=== PATIENT | male | born 1950 | race African-American/Black ===

== ENCOUNTER 2018-11-17 11:50 | Emergency (ER) | payer BC, MEDICARE ==
[~2018-11-17] VITALS: Ht 188 cm; Wt 98.0 kg
[~2018-11-17 11:50] MED LIST: AMLO5TAB88 PO; PRAV40TA58 PO; TOBR5DRO2 OP; VALS160T2 PO
[2018-11-17] MEDS ORDERED: ACETAMINOPHEN 325MG TABLET PO ONE (13:30)
[2018-11-17 15:49] VITALS: BP 166/95
== END 2018-11-17 15:58 | disposition home or self-care (01) ==
LOC: ER 11:50
DX: R51 Headache (principal); V43.52XA Car driver injured in collision with other type car in traffic accident, initial encounter; Y93.89 Activity, other specified; Y92.410 Unspecified street and highway as the place of occurrence of the external cause; I11.9 Hypertensive heart disease without heart failure; I25.2 Old myocardial infarction; Z86.73 Personal history of transient ischemic attack (TIA), and cerebral infarction without residual deficits
CPT/HCPCS: 99284

== ENCOUNTER 2019-04-14 02:40 | Emergency (ER) | payer BC, MEDICARE ==
[~2019-04-14] VITALS: Ht 182.9 cm; Wt 100.0 kg
[2019-04-14 03:45] VITALS: BP 170/84
== END 2019-04-14 04:04 | disposition home or self-care (01) ==
LOC: ER 02:40
DX: R31.9 Hematuria, unspecified (principal); R33.9 Retention of urine, unspecified; I25.2 Old myocardial infarction; I10 Essential (primary) hypertension
CPT/HCPCS: 99283

== ENCOUNTER 2023-05-23 18:00 | Inpatient (IN) | payer BC ==
[~2023-05-23] VITALS: Ht 167.6 cm; Wt 89.4 kg
[~2023-05-23 18:00] MED LIST changes: -AMLO5TAB88 PO; +CLOP75TA33 MT; +FERR-63 PO; +HYDR-4009 PO; +LOSA1TAB37 MT; +NICO-681 TD; -TOBR5DRO2 OP; -VALS160T2 PO
[2023-05-23 19:20] VITALS: BP 112/71; PULSE 95; RESP 19; TEMP 98.1
[2023-05-23 20:00] VITALS: BP 112/71; PULSE 95; RESP 19; TEMP 98.1
[2023-05-23] MEDS ORDERED: ACETAMINOPHEN 325MG TABLET PO PRN (20:15)
[2023-05-23] MEDS ORDERED: MAGNESIUM/ALUMINUM HYDROXIDE/SIMETHICONE 30ML UDC PO PRN (20:15)
[2023-05-23] MEDS ORDERED: NALOXONE HCL 0.4MG/ML 1ML VIAL IV PRN (20:15)
[2023-05-23] MEDS ORDERED: DOCUSATE SODIUM 100MG CAPSULE PO PRN (20:15)
[2023-05-23] MEDS ORDERED: NITROGLYCERIN 0.4MG TABLET SL SL PRN (20:15)
[2023-05-23] MEDS ORDERED: ONDANSETRON HCL 4MG/2ML INJ IV PRN ×2 (20:15→21:15)
[2023-05-23] MEDS: AMLODIPINE 5MG TABLET PO SCH (21:36)
[2023-05-23] MEDS: ATORVASTATIN CALCIUM 40MG TABLET PO SCH (21:36)
[2023-05-23] MEDS: QUETIAPINE FUMARATE 25MG TABLET PO SCH (21:37)
[2023-05-23] MEDS: SODIUM CHLORIDE 0.9% 1,000 ML IV SCH (21:37)
[2023-05-23] MEDS: HYDROCODONE/ACETAMINOPHEN 10/325MG TABLET PO PRN (21:42)
[2023-05-23] MEDS: HYDRALAZINE HCL 10MG TABLET PO SCH (21:43)
[2023-05-23] MEDS: OXYBUTYNIN CHLORIDE 5MG TABLET PO SCH (21:44)
[2023-05-24 06:52] LABS: BASOPHILS % 1.2 % (0.0-2.0); DIFFERENTIAL COMMENT 0; HEMATOCRIT. 24.8 % (42.0-52.0); HEMOGLOBIN. 8.3 g/dL (14.0-18.0); LYMPHOCYTES % 17.7 % (20.0-50.0); MEAN CORPUSCULAR HEMOGLOBIN 26.4 pg (28.0-32.0); MEAN CORPUSCULAR HGB CONC 33.4 g/dL (31.0-37.0); MEAN PLATELET VOLUME 7.6 fl (7.4-10.4); MONOCYTES % 7.9 % (2.0-8.0); NEUTROPHILS % 69.2 % (40.0-76.0); PLATELET 413 x1000/uL (130-400); RED BLOOD CELL COUNT 3.13 mill/uL (4.7-6.1); RED CELL DISTRIBUTION WIDTH 21.4 % (11.6-14.6)
[2023-05-24 07:21] LABS: ALANINE AMINOTRANSFERASE 45 IU/L (10-49); ALBUMIN 3.3 g/dL (3.2-4.8); ASPARTATE AMINOTRANSFERASE 59 IU/L (<34); BILIRUBIN TOTAL 0.3 mg/dL (0.1-1.0); CALCIUM 8.2 mg/dL (8.7-10.4); CARBON DIOXIDE 25 mEq/L (21-32); CHLORIDE 101 mEq/L (98-107); GLUCOSE 83 mg/dL (70-105); POTASSIUM 3.5 mEq/L (3.5-5.1); PROTEIN TOTAL 6.6 g/dL (6.0-8.3); SODIUM 129 mEq/L (136-145); UREA NITROGEN BLOOD 11 mg/dL (9-23)
[2023-05-24 08:00] VITALS: BP 111/63; PULSE 96; RESP 19; TEMP 100.3
[2023-05-24] MEDS: SILVER SULFADIAZINE 1% CREAM 50GM TOP SCH (09:00)
[2023-05-24] MEDS: NICOTINE 14MG PATCH TD SCH (09:04)
[2023-05-24] MEDS: CLOPIDOGREL 75MG TABLET PO SCH (09:04)
[2023-05-24] MEDS: ZINC SULFATE 220 MG ( 50 ) CAPSULE PO SCH (09:04)
[2023-05-24] MEDS: SERTRALINE HCL 25MG TABLET PO SCH (09:04)
[2023-05-24] MEDS: MULTIVITAMINS,THER W-MINERALS TABLET PO SCH (09:04)
[2023-05-24] MEDS: ASCORBIC ACID 500 MG TABLET PO SCH (09:05)
[2023-05-24] MEDS: FERROUS SULFATE 325MG TABLET PO SCH (09:05)
[2023-05-24] MEDS: CLONIDINE 0.1MG TABLET PO PRN (09:14)
[2023-05-24] MEDS ORDERED: CLONIDINE 0.1MG TABLET PO PRN (13:15)
[2023-05-25 08:00] VITALS: BP 106/76; PULSE 63; RESP 17; TEMP 97.1
[2023-05-25] MEDS: ACETAMINOPHEN 325MG TABLET PO PRN (17:33)
[2023-05-25 20:00] VITALS: BP 127/77; PULSE 88; RESP 18; TEMP 98.7
[2023-05-26 08:00] VITALS: BP 124/77; PULSE 92; RESP 18; TEMP 99.1
[2023-05-26] MEDS: MICONAZOLE NITRATE 2% OINT 71GM TOP SCH (09:00)
[2023-05-26 20:00] VITALS: BP 134/63; PULSE 99; RESP 18; TEMP 97.5
[2023-05-27 08:00] VITALS: BP 114/56; PULSE 75; RESP 17; TEMP 97.2
[2023-05-27 19:46] VITALS: BP 102/63; PULSE 89; RESP 20; TEMP 97.3
[2023-05-28 08:00] VITALS: BP 134/60; PULSE 72; RESP 18; TEMP 97.1
[2023-05-28 20:00] VITALS: BP 110/62; PULSE 91; RESP 18; TEMP 98.1
[2023-05-29 08:00] VITALS: BP 118/68; PULSE 86; RESP 19; TEMP 97.1
[2023-05-29 20:00] VITALS: BP 125/68; PULSE 97; RESP 18; TEMP 98.2
[2023-05-30 08:00] VITALS: BP 120/60; PULSE 88; RESP 18; TEMP 97.4
[2023-05-30 20:38] VITALS: BP 127/78; PULSE 89; RESP 20; TEMP 98.7
[2023-05-31 07:22] LABS: HEMATOCRIT 26.2 % (42.0-52.0); MEAN CORPUSCULAR HGB CONC 34.3 g/dL (31.0-37.0); MEAN CORPUSCULAR VOLUME 78.5 fL (80.0-94.0); PLATELET 384 x1000/uL (130-400); RED BLOOD CELL COUNT 3.34 mill/uL (4.7-6.1); RED CELL DISTRIBUTION WIDTH 21.4 % (11.6-14.6); WHITE BLOOD COUNT 5.4 x1000/uL (4.5-11.0)
[2023-05-31 07:27] LABS: CALCIUM 8.3 mg/dL (8.7-10.4); CARBON DIOXIDE 26 mEq/L (21-32); CHLORIDE 104 mEq/L (98-107); CREATININE 1.2 mg/dL (0.6-1.3); GLUCOSE 100 mg/dL (70-105); POTASSIUM 3.5 mEq/L (3.5-5.1); SODIUM 137 mEq/L (136-145); UREA NITROGEN BLOOD 11 mg/dL (9-23)
[2023-05-31 08:00] VITALS: BP 97/57; PULSE 88; RESP 18; TEMP 97.6
[2023-05-31 19:48] VITALS: BP 121/59; PULSE 96; RESP 20; TEMP 97.6
[2023-06-01 08:00] VITALS: BP 140/74; PULSE 98; RESP 20; TEMP 96.4
[2023-06-01 20:00] VITALS: BP 101/55; PULSE 95; RESP 18; TEMP 97.5
[2023-06-02 08:00] VITALS: BP 137/58; PULSE 82; RESP 20; TEMP 98.1
[2023-06-02 11:04] VITALS: BP 137/58; PULSE 82; TEMP 98.2; O2SAT 94
[2023-06-02] MEDS ORDERED: AMLO5TAB88 PO (11:44)
[2023-06-02] MEDS ORDERED: MULT-230 PO (11:44)
[2023-06-02] MEDS ORDERED: NICO1PAT50 TP (11:44)
[2023-06-02] MEDS ORDERED: SERT25TA74 PO (11:44)
[2023-06-02] MEDS ORDERED: PRAV40TA58 PO (11:44)
[2023-06-02] MEDS ORDERED: ZINC1CAP2 PO (11:44)
[2023-06-02] MEDS ORDERED: SILV50CR31 TP (11:44)
[2023-06-02] MEDS ORDERED: FERR-63 PO (11:44)
[2023-06-02] MEDS ORDERED: OXYB5TAB21 PO (11:44)
[2023-06-02] MEDS ORDERED: NICO-681 TD (11:44)
[2023-06-02] MEDS ORDERED: ASCO500T20 PO (11:44)
[2023-06-02] MEDS ORDERED: CLOP75TA33 PO (11:44)
== END 2023-06-02 14:25 | disposition home health service (06) | DRG 280 ==
PROVIDERS: ADMIT Psychiatry & Neurology Neurology; ATTEND Internal Medicine
DX: E11.52 Type 2 diabetes mellitus with diabetic peripheral angiopathy with gangrene (principal); A41.9 Sepsis, unspecified organism; I21.A1 Myocardial infarction type 2; L97.929 Non-pressure chronic ulcer of unspecified part of left lower leg with unspecified severity; C64.2 Malignant neoplasm of left kidney, except renal pelvis; M62.82 Rhabdomyolysis; N17.9 Acute kidney failure, unspecified; L03.116 Cellulitis of left lower limb; E87.1 Hypo-osmolality and hyponatremia; F33.1 Major depressive disorder, recurrent, moderate; Z89.612 Acquired absence of left leg above knee; D50.9 Iron deficiency anemia, unspecified; R31.9 Hematuria, unspecified; E03.8 Other specified hypothyroidism; N18.9 Chronic kidney disease, unspecified; E11.22 Type 2 diabetes mellitus with diabetic chronic kidney disease; D53.9 Nutritional anemia, unspecified; F43.23 Adjustment disorder with mixed anxiety and depressed mood; F17.210 Nicotine dependence, cigarettes, uncomplicated; I12.9 Hypertensive chronic kidney disease with stage 1 through stage 4 chronic kidney disease, or unspecified chronic kidney disease; I25.10 Atherosclerotic heart disease of native coronary artery without angina pectoris; Z86.718 Personal history of other venous thrombosis and embolism; Z86.73 Personal history of transient ischemic attack (TIA), and cerebral infarction without residual deficits; Z95.0 Presence of cardiac pacemaker
CPT/HCPCS: 36415; 80048; 80053; 82962; 85025; 85027; 97110; 97112; 97116; 97140; 97162; 97166; 97530; 97535; 97542; J7030